=== PATIENT | male | born 1940 | race Caucasian/White ===

== ENCOUNTER 2017-02-18 11:42 | Emergency (ER) | payer MEDICARE, BC ==
[2017-02-18] MEDS ORDERED: POVIDONE IODINE 10 % 15 ML UD TOP ONE (12:05)
--- NOTE | 2017-02-18 12:26 | ED.PDOC ---
History of Present Illness - General Chief Complaint: Trauma Stated Complaint: CUT TO L WRIST Time Seen by Provider: 02/18/17 12:24 Source: patient Exam Limitations: no limitations - History of Present Illness Initial Comments: PT PRESENTS TO THE ED WITH CHOP SAW INJURY TO LEFT WRIST. PT REQUIRED MY IMMEDIATE ATTENTION. ARTERIAL BLEEDING APPARENT. PT STATES THAT INJURY OCCURRED JUST PRIOR TO ED ARRIVAL. Occurred: just prior to arrival Pain - Upper Extremity: severe: Wrist, left Method of Injury: incised Improving Factors: other - DIRECT PRESSURE Worsening Factors: nothing Allergies/Adverse Reactions: Allergies contrast dye Allergy (Uncoded 02/18/17 12:31) Home Medications: Ambulatory Orders Acetaminophen W/ Codeine [Tylenol W/ CODEINE #3] 1 ea PO Q4HR PRN #24 02/18/17 Cephalexin Monohydrate [Keflex] 500 mg PO QID 7 Days #28 cap 02/18/17 Review of Systems - Review of Systems Constitutional: Denies: chills, fever EENTM: Denies: nose congestion, throat pain Respiratory: Denies: cough, short of breath Cardiology: Denies: chest pain, palpitations, syncope Gastrointestinal/Abdominal: Denies: abdominal pain, diarrhea, vomiting Genitourinary: Denies: dysuria, frequency Musculoskeletal: Denies: joint pain, joint swelling Skin: Denies: change in hair/nails, dryness Neurological: Denies: headache, numbness Endocrine: States: no symptoms reported Hematologic/Lymphatic: States: no symptoms reported Family Medical History - Family History Father Family History: No Known Living Status: Physical Exam - Physical Exam General Appearance: Alert, No apparent distress, Well Developed, Well Groomed, Well Hydrated Eyes, Ears, Nose, Throat Exam: normal ENT inspection Neck: normal inspection Cardiovascular/Respiratory: regular rate, rhythm, no M/R/G, normal breath sounds , no respiratory distress Abdominal Exam: non-tender Back Exam: normal inspection Wrist Exam: swelling - 8CM DEEP LACERATION TO THE MEDIAL ASPECT OF THE LEFT WRIST. ARTERIAL BLEEDING NOTED WHEN PRESSURE DRESSING IS REMOVED. Hand Exam: normal inspection, no evidence of injury Neuro/Tendon: normal sensation, normal motor functions, tendon function deficit - WITH ABDUCTION OF THUMB Mental Status: alert, oriented x 3 Skin Exam: normal color, warm/dry Progress - Progress Progress: 02/18/17 11:45 DR. LONG CALLED TO EVALUATE PATIENT. 02/18/17 11:55 DR. LONG AT BEDSIDE TO ASSIST AND EVALUATE. ASKS THAT ORTHO-HAND SPECIALIST BE CONSULTED. 02/18/17 12:[address] HUBBARD WHO STATES THAT PT MAY BE REPAIRED AND SEEN IN CLINIC IF STABLE. 02/18/17 12:[address] LONG WHO WILL REPAIR LACERATION AND ARTERY AT BEDSIDE. 02/18/17 13:52 DR. LONG ABLE TO ACHIEVE HEMOSTASIS. PT RESTING COMFORTABLY WITH NO COMPLAINTS AFTER PROCEDURE. PT REMAINS HEMODYNAMICALLY STABLE. 02/18/17 14:16 APPOINTMENT MADE FOR PATIENT WITH DR. HUBBARD AT 0850 TOMORROW MORNING. - Results/Orders Results/Orders: 02/18/17 12:32 PRBC [PACKED CELLS,LR] Stat TYPE AND SCREEN Stat 02/18/17 12:33 IV Care:Saline Lock per Protoc QSHIFT Telemetry .ONCE Sodium Chloride 0.9% (Flush) [Saline Flush Syringe] 10 ml IV PRN PRN Laboratory Results - last 24 hr 02/18/17 02/18/17 02/18/17 12:32 12:47 12:47 WBC 6.2 RBC 4.76 Hgb 15.4 Hct 45.5 MCV 95.5 H MCH 32.2 H MCHC 33.8 RDW 13.1 Plt Count 201 MPV 10.3 Absolute Neuts (auto) 4.00 Absolute Lymphs (auto) 1.40 Absolute Monos (auto) 0.70 Absolute Eos (auto) 0.10 Absolute Basos (auto) 0.00 Neutrophils % 63.8 Lymphocytes % 22.9 Monocytes % 11.4 H Eosinophils % 1.1 Basophils % 0.8 PT 11.7 INR 1.040 PTT (SP) 28.4 Sodium Potassium Chloride Carbon Dioxide Anion Gap BUN Creatinine BUN/Creatinine Ratio Random Glucose Serum Osmolality Calcium Total Bilirubin AST ALT Alkaline Phosphatase Serum Total Protein Albumin Globulin Albumin/Globulin Ratio Patient ABO/Rh A POSITIVE Antibody Screen Negative Crossmatch See Detail 02/18/17 02/18/17 12:47 13:14 WBC RBC Hgb 13.3 L Hct 40.0 L MCV MCH MCHC RDW Plt Count MPV Absolute Neuts (auto) Absolute Lymphs (auto) Absolute Monos (auto) Absolute Eos (auto) Absolute Basos (auto) Neutrophils % Lymphocytes % Monocytes % Eosinophils % Basophils % PT INR PTT (SP) Sodium 138 Potassium 3.4 L Chloride 101 Carbon Dioxide 27 Anion Gap 13.4 BUN 14 Creatinine 0.92 BUN/Creatinine Ratio 15.2 Random Glucose 125 H Serum Osmolality 277.6 Calcium 9.2 Total Bilirubin 0.8 AST 27 ALT 14 Alkaline Phosphatase 47 Serum Total Protein 7.3 Albumin 4.5 Globulin 2.8 Albumin/Globulin Ratio 1.6 Patient ABO/Rh Antibody Screen Crossmatch - EKG/XRAY/CT XRAY: WRIST: NO ACUTE FX NOTED Departure - Departure Clinical Impression: Laceration of wrist, left, with tendon involvement Time of Disposition: 14:04 Disposition: Discharge to Home or Self Care Condition: Good Departure Forms: ED Discharge - Pt. Copy, Patient Portal Self Enrollment Instructions: Finger Extensor Tendon Injury, DI for Laceration Repair -- Complex, DI for Trauma Diet: resume usual diet Activity: no lifting, no pushing/pulling with affected limb Referrals: Rob Hubbard MD [Referring] - 1-2 Days Prescriptions: Acetaminophen W/ Codeine [Tylenol W/ CODEINE #3] 1 ea PO Q4HR PRN #24 PRN Reason: Pain Cephalexin Monohydrate [Keflex] 500 mg PO QID 7 Days #28 cap Home Medications: Ambulatory Orders Acetaminophen W/ Codeine [Tylenol W/ CODEINE #3] 1 ea PO Q4HR PRN #24 02/18/17 Cephalexin Monohydrate [Keflex] 500 mg PO QID 7 Days #28 cap 02/18/17 Additional Instructions: YOU HAVE AN APPOINTMENT WITH DR. HUBBARD TOMORROW AT 08:50 AM. Critical Care Note - Critical Care Note Total Time (mins): 45 Comments: CRITICAL EVENT: L WRIST INJURY WITH ARTERIAL BLEEDING CRITICAL FINDINGS: ARTERIAL INJURY TO THE L RADIAL ARTERY, TENDON INJURY TO EXTENSOR TENDON OF 1ST DIGIT CRITICAL ACTIONS: ADMINISTRATION OF DIRECT PRESSURE, IV FLUID RESUSCITATION, EMERGENT SURGICAL CONSULT, EMERGENT ORTHO CONSULT, HEMODYNAMIC MONITORING.
[2017-02-18] MEDS: SODIUM CHLORIDE 0.9% 1000ML 1,000 ML IVS ONE (12:46)
[2017-02-18] MEDS: SODIUM CHLORIDE 0.9% (FLUSH) 10 ML SYG IV PRN (12:47)
[2017-02-18] MEDS ORDERED: LIDOCAINE 1% 10 ML VIAL INJ ONE (12:53)
[2017-02-18] MEDS: CEFAZOLIN SODIUM 2 GRAMS IV 2 GM in PREMIX BAG 1 BAG IVPB ONE (13:00)
[2017-02-18] MEDS ORDERED: SODIUM CHL 0.9% 100ML MINI-BAG 100 ML IVPB ONE (13:02)
[2017-02-18] MEDS ORDERED: ceFAZolin SODIUM 1 GM VIAL ONE (13:02)
[2017-02-18] MEDS: fentaNYL CITRATE INJ 50 MCG/ML AMP IV ONE (13:43)
[2017-02-18 13:50] VITALS: BP 180/101; TEMP 97.9; O2SAT 97
--- NOTE | 2017-02-18 14:42 | RAD ---
Three-view left wrist. Indication: L WRIST INJURY Comparison: None. Impression: No acute fracture or malalignment. Trace negative ulnar variance. Suspected mild widening of the scapholunate interval. MRI arthrography the of wrist could better evaluate. Soft tissues are intact without radiopaque foreign body. If there is persistent anatomic snuffbox tenderness, repeat wrist imaging to include a scaphoid view is recommended in one week to evaluate for occult scaphoid fracture. Electronically signed by: Faraz Abdul MD 02/18/2017 2:40 PM [facility]
--- NOTE | 2017-02-18 17:35 | CONS ---
REFERRING PHYSICIAN: Dr. Bridgett Ramirez, Emergency Room HISTORY OF PRESENT ILLNESS: The patient is a 76 year-old male who was cutting wood in his shop and cut his left hand and wrist with a chop saw. He had significant arterial bleeding which was controlled with a tourniquet in the Emergency Room and I was asked to see the patient. PAST MEDICAL HISTORY: Essentially noncontributory. CURRENT MEDICATIONS: He takes a baby aspirin on a daily basis and Centrum Silver.. ALLERGIES: IV CONTRAST. FAMILY HISTORY: Noncontributory. SOCIAL HISTORY: He is a retired dentist. There is no history of tobacco or alcohol abuse. PHYSICAL EXAMINATION: VITAL SIGNS: Pulse in the 80s, blood pressure within normal limits. GENERAL: The patient was awake, alert and cooperative and in no significant distress. LEFT HAND: Revealed a laceration of approximately 6 cm extending from the ulnar aspect distally to the radial aspect proximally. Upon releasing the tourniquet there was arterial bleeding and venous bleeding identified. The patient could move his hand and had normal sensation grossly to his hand. He did have some problem with extension of the thumb. IMPRESSION: Laceration of the left hand with laceration of the radial artery with an intact ulnar artery, probable injury to the extensor tendon, no apparent major neurological injury. PLAN: Give IV Ancet. Dr. Ramirez had consulted the hand surgeon in [place], Dr. Peters, I believe, who recommended the oversewing of the radial artery closing the skin and allowing him to be in early outpatient followup and this was the plan that was followed. #[id number] [facility]
--- NOTE | 2017-02-18 18:53 | OP ---
DATE OF PROCEDURE: 02/18/17 PREOPERATIVE DIAGNOSIS: 1. Laceration with injury to the radial nerve left wrist. POSTOPERATIVE DIAGNOSIS: 1. Laceration with injury to the radial nerve left wrist. SURGEON: Lenny Brown M.D. FITNESS SERVICES MANAGER: None. ANESTHESIA: Local infiltration of 1% Lidocaine. INDICATION FOR SURGERY: The patient is a 76 year-old male who cut his wrist with a chop saw at home. He has lost a significant amount of blood and had arterial bleeding which had been controlled by pressure and a tourniquet on his left arm. His tetanus was noted to be intact. He was given IV Ancef. The wound was cleaned with Betadine solution and saline. DESCRIPTION OF PROCEDURE: After the wound had been inspected, it was cleaned with Betadine and draped. At this point, the tourniquet was released and the area of arterial bleeding was identified. A suture ligature of #4-0 Prolene was placed and upon tightening this it was noted that he had pain extending up his arm to his shoulder, so this suture was removed and eventually multiple sutures were placed to control both the arterial bleeding in the radial artery and several venous areas. When these had all been sewed, the tourniquet which had been released several times just to identify bleeding was then lowered 20 mmHg at each time continued to be dry at each space. So at this point again the wound was irrigated with saline and then the skin edges were approximated with interrupted #3-0 Prolene vertical mattress sutures. A sterile dressing was applied. The patient tolerated the procedure well. Estimated blood loss is unknown but thought to be as much as 600 to 800 mL considering the patient's clothing and the floor when I arrived. He had stable vital signs at the end of the procedure. He had been given some IV fluid and was given a prescription for Keflex and pain medication by Dr. Ramirez. He will followup with the hand surgeon, although after discussion he will likely consult his diesel motor mechanic, Dr. Clarisse Esteves in [place] about a recommendation for a [place] hand surgeon. He understands I have no qualms with this and if he has questions or problems before he is to see the hand surgeon, he has been instructed to call me. He has also been instructed that he can shower and change his dressing tomorrow. He needs to keep his hand elevated and use it as little as possible at this time. #[id number] [facility]
== END 2017-02-18 15:00 | disposition home or self-care (01) ==
LOC: ER 11:42
DX: S65.112A Laceration of radial artery at wrist and hand level of left arm, initial encounter (principal); S66.922A Laceration of unspecified muscle, fascia and tendon at wrist and hand level, left hand, initial encounter; W29.8XXA Contact with other powered hand tools and household machinery, initial encounter; Y92.9 Unspecified place or not applicable
CPT/HCPCS: 35206; 36415; 73110; 80053; 85014; 85018; 85025; 85610; 85730; 86922; J0690; J7030; J7050

== ENCOUNTER → 2017-05-13 | Outpatient (CLI) | payer MEDICARE, BC | LOC: GMAL 16:44 | PROVIDERS: ATTEND Family Medicine | DX: I50.9 Heart failure, unspecified (principal); R60.0 Localized edema ==

== ENCOUNTER → 2017-06-23 | Outpatient (CLI) | payer MEDICARE, BC | LOC: GMAL 13:26 | PROVIDERS: ATTEND Family Medicine | DX: Z12.5 Encounter for screening for malignant neoplasm of prostate (principal) ==

== ENCOUNTER → 2017-12-17 | Outpatient (CLI) | payer MEDICARE, BC | LOC: GMAL 11:24 | PROVIDERS: ATTEND Family Medicine | DX: D51.3 Other dietary vitamin B12 deficiency anemia (principal); E55.9 Vitamin D deficiency, unspecified ==

== ENCOUNTER → 2018-03-16 | Outpatient (CLI) | payer MEDICARE, BC ==
--- NOTE | 2018-03-17 05:23 | CT ---
Procedure: CT ABDOMEN PELVIS WITHOUT IV CONTRAST Exam Date: 03/16/2018 Ordering Provider: Lenny Brown Clinical Indication: VENTRAL HERNIA Comparison: None TECHNIQUE: 2.5mm images were taken through the abdomen and pelvis without the administration of nonionic intravenous contrast material. Oral contrast was not administered. Coronal and sagittal reformatted images were generated. This exam was performed according to our departmental dose optimization program which includes use of automated exposure control, adjustment of the mA and/or kV according to patient size and/or use of iterative reconstruction technique. FINDINGS: Lower chest: Cardiomegaly. Moderate sized hiatal hernia. Abdomen: Liver and biliary system: 2.3 cm low-density lesion in the right hepatic lobe is likely a cyst. Additional subcentimeter liver lesions are too small to characterize. Cholelithiasis without CT evidence of acute cholecystitis. Spleen: Evidence of prior granulomatous disease. Pancreas: 14m low-density lesion in the head of the pancreas may represent a cyst or intraductal papillary mucinous neoplasm. Adrenal glands: Unremarkable Kidneys, ureters, bladder: Bilateral renal cysts, some of which are higher than simple fluid density, largest on the left measuring up to 1.7 cm and largest on the right measuring up to 1.5 cm. Punctate nonobstructing stone in the right kidney. No hydronephrosis in either kidney. Ureters and bladder are unremarkable. Lymph nodes: No lymphadenopathy. Retroperitoneum, abdominal wall, peritoneal cavity: Tiny uncomplicated fat-containing ventral hernia on axial image 57. Fat-containing left inguinal hernia. No ascites. No free air. Vessels: Calcified atherosclerotic plaque in the aorta and its branch vessels. No abdominal aortic aneurysm. Pelvis: Lymph nodes: No lymphadenopathy Bowel: No bowel obstruction. Colonic diverticulosis without evidence of diverticulitis. Pelvic organs: Enlarged prostate gland indents the underside of the bladder. Bones: No destructive bony lesions. IMPRESSION: 1. 14m low-density lesion in the head of the pancreas may represent a cyst or intraductal papillary mucinous neoplasm. This can be further evaluated with MR or CT pancreas protocol. 2. Hepatic cysts. 3. Cholelithiasis without CT evidence of acute cholecystitis. 4. Bilateral renal cysts, some of which appear higher than simple fluid density. Further evaluation with renal ultrasound is recommended. 5. Moderate-sized hiatal hernia. 6. Tiny uncomplicated fat-containing ventral hernia. 7. Colonic diverticulosis without evidence of diverticulitis. 8. Additional findings as above. Electronically signed by: Pedro Coffman MD 03/17/2018 5:22 AM [facility]
== END ==
LOC: LAB.O 14:25
PROVIDERS: ATTEND Surgery
DX: K43.9 Ventral hernia without obstruction or gangrene (principal); K44.9 Diaphragmatic hernia without obstruction or gangrene; K86.9 Disease of pancreas, unspecified; K76.89 Other specified diseases of liver; K80.20 Calculus of gallbladder without cholecystitis without obstruction; N28.1 Cyst of kidney, acquired; K57.30 Diverticulosis of large intestine without perforation or abscess without bleeding

== ENCOUNTER → 2018-03-24 | Outpatient (CLI) | payer MEDICARE, BC ==
--- NOTE | 2018-03-24 17:38 | MRI ---
EXAM DESCRIPTION: MRI Abdomen w/wo Contrast CLINICAL HISTORY: 78 years Male, PANCREATIC MASS COMPARISON: CT abdomen March 16, 2018 TECHNIQUE: MRI of the abdomen is performed according to our usual technique including multisequence axial imaging. Postcontrast images were obtained after intravenous administration of routine adult dose of gadolinium contrast. FINDINGS: Coronal T2 images show scattered tiny cysts in the liver. Former prominent cyst along the inferior margin of the right lobe of the liver measures 2.3 cm. Cysts are seen in the kidneys. Cyst in the lower right kidney measures 1.1 cm. Cyst in the mid right kidney measures 1.8 cm. Cyst in the upper left kidney measures 1.8 cm. Duodenal diverticulum is prominent 3.5 cm in diameter. Multiple stones are seen in the gallbladder. Small cystic lesions in the pancreas are noted in the region of the neck. No dilatation of bile ducts or pancreatic duct. A tiny cyst at the junction of the head and neck inferiorly measures 6 mm (axial T2 image 12, series 401) with larger cystic lesion with few septations measuring 1.8 cm in the pancreatic neck. Although this displaces the pancreatic duct slightly posteriorly, no ductal obstruction is evident which argues against malignancy. Another small cyst in the more proximal neck measures 8 mm. On the axial images, common bile duct is normal in caliber. No intrahepatic ductal dilatation. No solid appearing lesion of the pancreas. No upper abdominal adenopathy. Small cyst in the anterior abdominal wall is thought to be related to previous surgery or could be a small hernia containing omental fat with a small amount of surrounding fluid. Axial T2 fat sat images confirm the presence of cysts in various organs. Heart is large. The lower lungs are clear. Spleen is prominent with diagonal measurement of 12.3 cm. Dual phase T1 gradient echo imaging was performed. No significant signal loss in the liver to suggest hepatic steatosis. Paradoxical increased signal intensity of mild degree suggests increased iron content within the liver. Diffusion-weighted images are evaluated. No worrisome restriction. Before and after IV contrast, T1 fat sat images are compared. Normal enhancement of renal cortex, splenic, pancreatic and hepatic parenchyma. The lesions in the pancreas are nonenhancing. Hepatic and renal lesions are nonenhancing as well consistent with cysts. Cystic lesions in the pancreas could represent old pseudocysts from previous pancreatitis, benign incidental epithelial cysts, benign cystic neoplasm (serous cystadenoma), ectatic branch duct containing a mucin producing lesion or mucinous pancreatic neoplasm with malignant potential. The latter is thought least likely with small size and lack of complicating features. As a routine precaution, follow-up with CT or MRI in six months is recommended to ensure stability. Alternatively, endoscopic sonography could be utilized for pancreatic cyst fluid aspiration for further imaging follow-up. IMPRESSION: Small cystic lesions in the pancreas, likely benign. Follow-up imaging in six months is recommended to ensure stability. Multiple renal and hepatic cysts. Cholelithiasis. Small ventral hernia containing fat and fluid. Electronically signed by: Jordin Wang MD 03/24/2018 5:36 PM [facility]
== END ==
LOC: MRI 14:09
PROVIDERS: ATTEND Surgery
DX: D49.0 Neoplasm of unspecified behavior of digestive system (principal); K80.20 Calculus of gallbladder without cholecystitis without obstruction; K76.89 Other specified diseases of liver; K43.9 Ventral hernia without obstruction or gangrene; N28.1 Cyst of kidney, acquired

== ENCOUNTER → 2019-03-22 | Outpatient (CLI) | payer MEDICARE, BC | LOC: GMAL 11:18 | PROVIDERS: ATTEND Family Medicine | DX: D51.3 Other dietary vitamin B12 deficiency anemia (principal); Z12.5 Encounter for screening for malignant neoplasm of prostate; R53.82 Chronic fatigue, unspecified; E55.9 Vitamin D deficiency, unspecified; I10 Essential (primary) hypertension; E78.49 Other hyperlipidemia | CPT/HCPCS: 82306; 82607; 84443; G0103 ==

== ENCOUNTER → 2019-09-09 | Outpatient (CLI) | payer MEDICARE, BC | LOC: GMAL 10:44 | PROVIDERS: ATTEND Family Medicine | DX: D51.3 Other dietary vitamin B12 deficiency anemia (principal); R53.82 Chronic fatigue, unspecified; I10 Essential (primary) hypertension; E78.49 Other hyperlipidemia; M10.072 Idiopathic gout, left ankle and foot ==

== ENCOUNTER → 2020-04-14 | Outpatient (CLI) | payer MEDICARE, BC | LOC: GMAL 11:18 | PROVIDERS: ATTEND Family Medicine | DX: D51.3 Other dietary vitamin B12 deficiency anemia (principal); E55.9 Vitamin D deficiency, unspecified; R53.82 Chronic fatigue, unspecified; R73.09 Other abnormal glucose; I10 Essential (primary) hypertension; Z12.5 Encounter for screening for malignant neoplasm of prostate; E29.1 Testicular hypofunction; I50.30 Unspecified diastolic (congestive) heart failure; E78.49 Other hyperlipidemia; Z79.899 Other long term (current) drug therapy | CPT/HCPCS: 82306; 82607; 84402; 84403; 84439; 84443; G0103 ==